=== PATIENT | male | born 1995 | race Two or more races ===

== ENCOUNTER 2018-04-30 19:02 | Emergency (ER) | payer OTHER ==
[~2018-04-30] VITALS: Ht 175.3 cm; Wt 97.3 kg
[2018-04-30 19:06] VITALS: BP 151/76
[2018-04-30] MEDS ORDERED: DIAZEPAM 5 MG TABLET PO ONE (19:30)
[2018-04-30] MEDS ORDERED: KETOROLAC 30 MG/1 ML IM ONE (19:30)
[2018-04-30] MEDS ORDERED: DIAZEPAM 5 MG TABLET ONE (19:31)
[2018-04-30] MEDS ORDERED: KETOROLAC 30 MG/1 ML ONE (19:32)
== END 2018-04-30 20:06 | disposition home or self-care (01) ==
LOC: ED 20:00
DX: S39.012A Strain of muscle, fascia and tendon of lower back, initial encounter (principal); X58.XXXA Exposure to other specified factors, initial encounter; Y93.01 Activity, walking, marching and hiking; Y92.89 Other specified places as the place of occurrence of the external cause; Y99.8 Other external cause status
CPT/HCPCS: 72110; 96372; 99283; J1885